=== PATIENT | male | born 2000 | race Caucasian/White ===

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

== ENCOUNTER 2022-04-06 20:19 | Emergency (ER) | payer BC ==
[~2022-04-06 20:19] MED LIST: AUGMENTIN 875-1 EACH PO; LODINE CAP 300300 MG PO
== END 2022-04-06 23:59 | disposition home or self-care (01) ==
LOC: ER1 20:19
DX: S83.91XA Sprain of unspecified site of right knee, initial encounter (principal); W01.10XA Fall on same level from slipping, tripping and stumbling with subsequent striking against unspecified object, initial encounter
CPT/HCPCS: 29530; 73564; 99283

== ENCOUNTER → 2022-04-12 | Outpatient (CLI) | payer BC | LOC: EMI 04-11 09:30 → MRI 09:30 → KOH-I 04-14 14:30 → MRI 04-14 14:30 | DX: S80.911A Unspecified superficial injury of right knee, initial encounter (principal); M25.561 Pain in right knee; S83.8X1A Sprain of other specified parts of right knee, initial encounter | CPT/HCPCS: 73721 ==

== ENCOUNTER → 2022-05-04 | Day surgery (SDC) | payer BC ==
[~2022-05-04] VITALS: Ht 177.8 cm; Wt 92.5 kg
[~2022-05-04] MED LIST changes: +HYDROCODON-ACE1 EAC6 PO; +ZOFRAN 4 MG TAB4 MG PO
== END | disposition home or self-care (01) ==
LOC: OR 08:26
DX: M23.41 Loose body in knee, right knee (principal); M79.4 Hypertrophy of (infrapatellar) fat pad
CPT/HCPCS: J0171; J0690; J1100; J1170; J1885; J2001; J2250; J2274; J2405; J2704; J3010; J3301